=== PATIENT | female | born 1975 | race Caucasian/White ===

== ENCOUNTER 2017-03-02 19:26 | Emergency (ER) | payer OTHER ==
[2017-03-02 19:41] VITALS: BP 141/92; PULSE 86; RESP 18; TEMP 98.6
--- NOTE | 2017-03-02 19:50 | ED ---
General Adult HPI - General Chief complaint: Extremity Injury, Lower Stated complaint: Knee injury Time Seen by Provider: 03/02/17 19:42 Source: patient, RN notes reviewed Mode of arrival: ambulatory Limitations: no limitations - History of Present Illness Initial comments: 41 female presents to the ER with cc of fall. 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 Patient states that she is having some right knee pain as well as left wrist pain following a fall. There was no head injury and there was no other injury from this. Patient was able to ambulate. She states that there is no crackles. She was concerned due to her discomfort so she thought that she be evaluated. Patient denies any recent fever, chills, shortness of breath, chest pain, back pain, abdominal pain , nausea vomiting, numbness or tingling, dysuria or hematuria, constipation or diarrhea, headaches or visual changes, or any other current symptoms. - Related Data Home Medications Medication Instructions Recorded Confirmed No Known Home Medications [No 03/02/17 03/02/17 Known Home Medications] Allergies Allergy/AdvReac Type Severity Reaction Status Date / Time latex Allergy Rash/Hives Verified 03/02/17 19:41 Review of Systems ROS Statement: Those systems with pertinent positive or pertinent negative responses have been documented in the HPI. ROS Other: All systems not noted in ROS Statement are negative. Past Medical History Past Medical History: No Reported History History of Any Multi-Drug Resistant Organisms: None Reported Past Surgical History: Section Past Psychological History: No Psychological Hx Reported Smoking Status: Former smoker Past Alcohol Use History: Occasional Past Drug Use History: Marijuana General Exam - General Exam Comments Initial Comments: General: The patient is awake and alert, in no distress, and does not appear acutely ill. Neck: The neck is supple, there is no tenderness. Cardiovascular: There is a regular rate and rhythm. No murmur, rub or gallop is appreciated. Respiratory: Lungs are clear to auscultation, respirations are non-labored, breath sounds are equal. No wheezes, stridor, rales, or rhonchi. Musculoskeletal: Sensation intact with 2+ pulses throughout the left upper and right lower x-ray. Full range of motion. No point bony tenderness. Eye muscle strength testing. No skin abrasion or irritation. Neurological: CN II-XII intact, There are no obvious motor or sensory deficits. Coordination appears grossly intact. Speech is normal. Skin: Skin is warm and dry and no rashes or lesions are noted. Psychiatric: Normal mood and affect. Limitations: no limitations Course Vital Signs 03/02/17 19:36 Temperature 98.6 F Pulse Rate 86 Respiratory 18 Rate Blood Pressure 141/92 O2 Sat by Pulse 98 Oximetry Medical Decision Making - Medical Decision Making 41-year-old female presents emergency Department what appears the left wrist sprain and right knee sprain. This time we discussed Motrin Tylenol. We discussed care follow-up return parameters. We discussed all the patient's and family's questions. They stated they understood and management this plan. All questions have been answered. This time patient will be discharged. - Radiology Data Radiology results: report reviewed, image reviewed Disposition Clinical Impression: Right knee sprain, Left wrist sprain Disposition: HOME SELF-CARE Condition: Stable Instructions: Knee Pain (ED), Wrist Sprain (ED) Additional Instructions: Please use medication as discussed. Please follow up with family doctor if symptoms have not improved over the next two days. Please return to the emergency room if your symptoms increase or worsen or for any other concerns. Referrals: Esther Bautista MD [STAFF PHYSICIAN] - 1-2 days Time of Disposition: 20:09
--- NOTE | 2017-03-02 20:08 | XR ---
EXAMINATION TYPE: XR wrist complete LT DATE OF EXAM: 03/02/2017 CLINICAL HISTORY: Left wrist pain after fall injury TECHNIQUE: Frontal, lateral, scaphoid, and oblique images of the left wrist are obtained. COMPARISON: None FINDINGS: There is no acute fracture/dislocation evident in the left wrist. The joint spaces in the left wrist appear within normal limits. The overlying soft tissue appears unremarkable. IMPRESSION: There is no acute fracture or dislocation in the left wrist.
--- NOTE | 2017-03-02 20:09 | XR ---
EXAMINATION TYPE: XR knee complete RT DATE OF EXAM: 03/02/2017 CLINICAL HISTORY: Pain after fall injury. TECHNIQUE: Three views of the right knee are obtained. COMPARISON: None. FINDINGS: There is no acute fracture/dislocation evident in right knee. Mild joint space loss medial tibiofemoral and patellofemoral compartments are present. The overlying soft tissue appears unremar kable. IMPRESSION: There is no acute fracture or dislocation in the right knee.
== END 2017-03-02 20:19 | disposition home or self-care (01) ==
LOC: EC 19:26
DX: S83.91XA Sprain of unspecified site of right knee, initial encounter (principal); S63.502A Unspecified sprain of left wrist, initial encounter; Z87.891 Personal history of nicotine dependence; Z91.040 Latex allergy status; W01.198A Fall on same level from slipping, tripping and stumbling with subsequent striking against other object, initial encounter; Y93.89 Activity, other specified; Y92.009 Unspecified place in unspecified non-institutional (private) residence as the place of occurrence of the external cause
CPT/HCPCS: 99283

== ENCOUNTER 2017-04-04 22:33 | Emergency (ER) | payer SELFPAY ==
[2017-04-04 22:46] VITALS: BP 137/84; PULSE 102; RESP 20; TEMP 98.1
--- NOTE | 2017-04-04 23:54 | ED ---
General Adult HPI - General Chief complaint: Recheck/Abnormal Lab/Rx Stated complaint: Knee Pain Time Seen by Provider: 04/04/17 23:42 Source: patient, RN notes reviewed Mode of arrival: ambulatory Limitations: no limitations - History of Present Illness Initial comments: 41-year-old female presents for left knee pain. She is currently on restrictions at work and she states that she is having a difficulty time even getting restrictions due to increased left knee pain on walking up and down stairs. Prescription taper states she can do stairs when are per shift but she states it is too much. She told her employer this and he referred her here because she appeared to be in too much pain to work. She states that the pain is behind her left knee just is been normally. She states she is scheduled for an MRI and Saturday due to the fact that she's not had much improvement. She states that she is just here because work made her come here because she couldn' t do what they were requiring.Patient denies any recent fever, chills, shortness of breath, chest pain, back pain, abdominal pain, nausea vomiting, numbness or tingling, dysuria or hematuria, constipation or diarrhea, headaches or visual changes, or any other current symptoms. - Related Data Home Medications Medication Instructions Recorded Confirmed No Known Home Medications [No 03/02/17 03/02/17 Known Home Medications] Allergies Allergy/AdvReac Type Severity Reaction Status Date / Time latex Allergy Rash/Hives Verified 04/04/17 22:46 Review of Systems ROS Statement: Those systems with pertinent positive or pertinent negative responses have been documented in the HPI. ROS Other: All systems not noted in ROS Statement are negative. Past Medical History Past Medical History: No Reported History History of Any Multi-Drug Resistant Organisms: None Reported Past Surgical History: Section Past Psychological History: No Psychological Hx Reported Smoking Status: Former smoker Past Alcohol Use History: Occasional Past Drug Use History: Marijuana General Exam - General Exam Comments Initial Comments: General: The patient is awake and alert, in no distress, and does not appear acutely ill. Neck: The neck is supple, there is no tenderness. Cardiovascular: There is a regular rate and rhythm. No murmur, rub or gallop is appreciated. Respiratory: Lungs are clear to auscultation, respirations are non-labored, breath sounds are equal. No wheezes, stridor, rales, or rhonchi. Musculoskeletal: Sensation intact with 2+ pulses throughout the left lower extremity. Fund motion of left ankle left knee and left hip. No deformity no swelling no bruising noted. Neurological: CN II-XII intact, There are no obvious motor or sensory deficits. Coordination appears grossly intact. Speech is normal. Skin: Skin is warm and dry and no rashes or lesions are noted. Psychiatric: Normal mood and affect. Limitations: no limitations Course Vital Signs 04/04/17 22:42 Temperature 98.1 F Pulse Rate 102 H Respiratory 20 Rate Blood Pressure 137/84 O2 Sat by Pulse 99 Oximetry Medical Decision Making - Medical Decision Making 41-year-old female presents for left knee pain. At this time we did give the patient a note for no work tonight due to increased pain. We discussion follow- up with [facility] in the morning for continued care and evaluation. Patient is in agreement this plan. All questions have been answered. This time she will be discharged. Disposition Clinical Impression: Left knee pain Disposition: HOME SELF-CARE Condition: Stable Instructions: Knee Pain (ED) Additional Instructions: Please use medication as discussed. Please follow up with family doctor if symptoms have not improved over the next two days. Please return to the emergency room if your symptoms increase or worsen or for any other concerns. Please follow up with [facility] in the morning. Referrals: Alysha Galloway MD [REFERRING] - 1-2 days Time of Disposition: 23:53
== END 2017-04-04 23:59 | disposition home or self-care (01) ==
LOC: EC 22:33
DX: M25.562 Pain in left knee (principal); Z87.891 Personal history of nicotine dependence; Z91.040 Latex allergy status
CPT/HCPCS: 99283

== ENCOUNTER → 2017-04-17 | Outpatient (CLI) | payer SELFPAY | LOC: LABWHC1 11:16 | PROVIDERS: ATTEND Emergency Medicine | DX: Z32.00 Encounter for pregnancy test, result unknown (principal) | CPT/HCPCS: 81025 ==

== ENCOUNTER → 2017-04-18 | Outpatient (CLI) | payer OTHER ==
--- NOTE | 2017-04-18 09:47 | MR ---
EXAMINATION TYPE: MR knee LT wo con DATE OF EXAM: 04/18/2017 COMPARISON: Plain film 03/11/2017 HISTORY: Trauma and pain, sprain TECHNIQUE: Multiplanar, multisequence imaging of the knee is performed without IV contrast. FINDINGS: MEDIAL MENISCUS: Some increased signal is likely degenerative, no definite tear. LATERAL MENISCUS: Mild increased signal is noted, linear increased signal in the posterior horn exten ds the articular surface, difficult to exclude tear CRUCIATE LIGAMENTS: The anterior and posterior cruciate ligaments are intact and unremarkable. COLLATERAL LIGAMENTS: The medial collateral ligament and lateral collateral ligament complex are inta ct and unremarkable. EXTENSOR MECHANISM: Visualized quadriceps and patellar tendons are intact. EFFUSION: Small joint effusion noted. POPLITEAL CYST: No popliteal/garcia cyst. TRICOMPARTMENT SPACES: There is marginal spurring present at the posterior patella, slight lateral santos bluxation noted at the patella CARTILAGE: Grade III to IV chondromalacia present in the posterior patella and in anterior femur at i ts articulation with the patella. BONE MARROW SIGNAL: Subchondral geode formation suspected at the patellofemoral joint OTHER: No additional significant abnormality is appreciated. IMPRESSION: Chondromalacia patella, osteoarthritis. Difficult to exclude tear of the posterior horn of the latera l meniscus. Small joint effusion and additional findings above.
== END | disposition home or self-care (01) ==
LOC: RADMRIMAIN 08:43
PROVIDERS: ATTEND Emergency Medicine
DX: M22.42 Chondromalacia patellae, left knee (principal); M17.12 Unilateral primary osteoarthritis, left knee; S43.401D Unspecified sprain of right shoulder joint, subsequent encounter; S63.502D Unspecified sprain of left wrist, subsequent encounter; S83.91XD Sprain of unspecified site of right knee, subsequent encounter; S93.602D Unspecified sprain of left foot, subsequent encounter